=== PATIENT | male | born 1980 | race Caucasian/White ===

== ENCOUNTER 2020-11-04 07:16 | Outpatient (REF) | payer OTHER, SELFPAY ==
[2020-11-04 11:32] LABS: Appearance Urine TURBID; Color Urine YELLOW; Glucose Urine UA NEG (NEG); Leukocyte Esterase Urine NEG (NEG); Nitrite Urine NEG (NEG); PH 5.5 (5.0-8.0); Specific Gravity - Urine >= 1.030 (1.005-1.025); Urine Blood NEG (NEG); Urine Ketones NEG (NEG); Urine Protein NEG (NEG-TRACE)
[2020-11-04 11:38] LABS: Hematocrit 45.3 % (42-52); Hemoglobin 15.6 g/dl (14.0-18.0); Mean Corpuscular HGB Conc 34.4 g/dl (31.0-36.0); Mean Corpuscular Hemoglobin 30.2 pg (27.0-33.0); Mean Corpuscular Volume 87.8 fL (80-98); Mean Platelet Volume 12.1 fL (9.4-12.4); Platelet Count 222 X10*3/uL (160-400); Red Blood Count 5.16 X10*6/uL (4.60-5.80); Red Cell Distribution Width 11.9 % (11.0-16.0); White Blood Count 7.6 X10*3/uL (4.8-10.8)
[2020-11-04 11:47] LABS: Amorphous Sediment Urine 4+ /LPF; RBC Urine 0 /HPF (0); WBC Urine 0 /HPF (0-4)
[2020-11-04 11:50] LABS: Alanine Aminotransferase 38 U/L (0-40); Albumin Level 4.5 g/dL (3.5-5.0); Alkaline Phosphatase 74 U/L (39-117); Anion Gap 14 (12-20); Aspartate Amino Transferase 23 U/L (5-37); Bilirubin Total 1.1 mg/dL (0.0-1.0); Blood Urea Nitrogen 17 mg/dL (9-16); Calcium 9.3 mg/dL (8.4-10.2); Carbon Dioxide 23 mmol/L (22-29); Chloride 106 mmol/L (96-108); Cholesterol 180 mg/dL; Estimated Glomerular Filt Rate > 60; Glucose Fasting 119 mg/dL (60-99); HDL Cholesterol 53 mg/dL; LDL Cholesterol Calculated 82 mg/dl; Sodium 139 mmol/L (135-145); Total Protein 7.3 g/dL (6.5-8.0); Triglycerides 225 mg/dL
== END 2020-11-04 07:17 | disposition home or self-care (01) ==
LOC: HO.HMGCLDS 07:16
PROVIDERS: PCP Internal Medicine; Visit Provider Internal Medicine
DX: Z00.00 Encounter for general adult medical examination without abnormal findings (principal)
CPT/HCPCS: 36415; 80053; 80061; 81001; 85027

== ENCOUNTER 2021-11-05 10:01 | Outpatient (REF) | payer OTHER, SELFPAY ==
--- NOTE | ~2021-11-05 | US_ITS ---
EXAMINATION: US SCROTUM CLINICAL INFORMATION: Epididymitis. COMPARISON: None TECHNIQUE: A sonogram of the scrotum was performed assessing bernabe-scale appearance and color Doppler flow. Spectral Doppler analysis of the arterial and venous flow were performed in the testes bilaterally. FINDINGS: RIGHT: Right testicle measures 5.22 x 2.29 x 3.34 cm, volume 20.9 mL. No focal testicular parenchymal lesions are visualized. Spectral Doppler analysis of the arterial and venous flow is normal in the right testis. Right epididymal head is normal in size. No right hydrocele or varicocele is seen. Right epididymal Doppler flow is normal. LEFT: Left testicle measures 5.10 x 2.33 x 3.03 cm, volume 18.9 mL. No focal testicular parenchymal lesions are visualized. Spectral Doppler analysis of the arterial and venous flow is normal in the left testis. Left epididymal head is normal in size. Trace left hydrocele. No varicocele is seen. Left epididymal Doppler flow is normal. US/US scrotum IMPRESSION: No findings to suggest epididymitis. Trace left hydrocele.
== END 2021-11-05 10:02 | disposition home or self-care (01) ==
LOC: HO.HMGCX 10:01
PROVIDERS: PCP Internal Medicine; Visit Provider Internal Medicine
DX: N45.1 Epididymitis (principal)
CPT/HCPCS: 76870

== ENCOUNTER 2022-03-04 10:57 | Outpatient (REF) | payer OTHER, SELFPAY ==
[2022-03-04 14:03] LABS: MANUAL DIFF FLAG NO
[2022-03-04 14:18] LABS: Basophils Absolute Auto 0.1 X10*3/uL (0.0-0.2); Basophils Percent Auto 0.8 % (0-2); Eosinophils Absolute Auto 0.2 X10*3/uL (0.0-0.4); Hematocrit 47.6 % (42.0-52.0); Hemoglobin 16.2 g/dl (14.0-18.0); Imm Gran Abs Auto 0.06 X10*3/uL (0.00-0.03); Imm Gran Pct Auto 0.8 % (0.0-0.4); Lymphocytes Absolute Auto 2.2 X10*3/uL (1.2-4.9); Mean Corpuscular Hemoglobin 30.1 pg (27.0-33.0); Mean Corpuscular Volume 88.5 fL (80.0-98.0); Mean Platelet Volume 11.4 fL (9.4-12.4); Monocytes Absolute Auto 0.8 X10*3/uL (0.1-1.2); Monocytes Percent Auto 10.6 % (2-11); Neutrophils Percent Auto 54.8 % (45-73); Platelet Count 237 X10*3/uL (160-400); Red Blood Count 5.38 X10*6/uL (4.60-5.80); Red Cell Distribution Width 11.7 % (11.0-16.0); White Blood Count 7.3 X10*3/uL (4.8-10.8)
[2022-03-04 14:27] LABS: Appearance Urine Clear; Color Urine Yellow; Glucose Urine UA Negative (Negative); Leukocyte Esterase Urine Negative (Negative); Nitrite Urine Negative (Negative); PH 6.5 (5.0-9.0); Specific Gravity - Urine 1.015 (1.005-1.025); Urine Blood Negative (Negative); Urine Ketones Negative (Negative); Urine Protein Negative (Neg-Trace)
[2022-03-04 14:28] LABS: Estimated Average Glucose 111 mg/dL; Hemoglobin A1C 150.8504 umol/L; Hemoglobin A1c % 5.5 %
[2022-03-04 14:30] LABS: Bacteria Urine None Seen (None Seen); Hyaline Casts Urine 0-2 /LPF (0-2); RBC Urine 0-2 /HPF (0-2); Squamous Epithelial Cell Urine 0-2 /HPF (0-2); WBC Urine 0-5 /HPF (0-5)
[2022-03-04 14:34] LABS: Alanine Aminotransferase 45 U/L (0-40); Albumin Level 4.5 g/dL (3.5-5.0); Alkaline Phosphatase 77 U/L (39-117); Anion Gap 12 (12-20); Aspartate Amino Transferase 24 U/L (5-37); Bilirubin Total 0.6 mg/dL (0.0-1.0); Blood Urea Nitrogen 16 mg/dL (9-16); Calcium 9.3 mg/dL (8.4-10.2); Carbon Dioxide 26 mmol/L (22-29); Chloride 105 mmol/L (96-108); Cholesterol 182 mg/dL; Estimated Glomerular Filt Rate > 60; Glucose Fasting 113 mg/dL (60-99); HDL Cholesterol 48 mg/dL; LDL Cholesterol Calculated 101 mg/dl; Potassium 4.8 mmol/L (3.3-5.1); Sodium 138 mmol/L (135-145); Total Protein 7.3 g/dL (6.5-8.0); Triglycerides 168 mg/dL
== END 2022-03-04 10:58 | disposition home or self-care (01) ==
LOC: HO.HMGCLDS 10:57
PROVIDERS: PCP Internal Medicine; Visit Provider Internal Medicine
DX: Z00.00 Encounter for general adult medical examination without abnormal findings (principal); I10 Essential (primary) hypertension
CPT/HCPCS: 36415; 80053; 80061; 81001; 83036; 85025

== ENCOUNTER 2023-01-20 13:44 | Outpatient (AMB) | payer OTHER, SELFPAY ==
[2023-01-20 13:53] VITALS: BP 132/78; PULSE 88; O2SAT 97; BMI 32.6
--- NOTE | 2023-01-20 13:53 | MHC.PC.OV ---
Vital Signs 01/20/23 13:53 01/20/23 13:57 Height 6 ft 2 in Weight 254 lb BMI 32.6 BP 132/78 132/80 Blood Pressure Location Lt brachial Rt brachial Position Sitting Sitting Pulse 88 Pulse Source Pulse Oximeter Pulse Oximetry (%) 97 Oxygen Delivery Method Room Air Intake Visit Reasons: elevated BP Intake Note: Pt is here today for a sick visit. Pt c/o elevated BP for last 4 days. Allergies No Known Allergies Allergy (Verified 01/20/23 13:58) Medication List - Last Reconciled 01/20/23 by Tita Jacobsen MD cetirizine (Zyrtec) PO DAILY PRN lisinopril 10 mg PO BID montelukast 10 mg PO DAILY valacyclovir (Valtrex) 2,000 mg (2 x 1 gram) PO Q12H Tobacco use date assessed: 01/20/23 Dental Screening Dental Screen Date: 01/20/23 Did you have a dental visit in the last 12 months?: Yes Did you have a dental problem in the last 6 months where you did not have access to dental care?: No Was dental information given to patient?: Patient has dentist HPI elevated BP HPI Details Pt had an episode of elevated BP 4 days ago to 150/100 and PRESTON. Pt started taking Zyrtec D for seasonal allergies and stopped 3 days ago. Pt has gained 10 lbs, eating processed salty foods. PFSH Medical History Hyperglycemia Overweight HTN (hypertension) Annual physical exam Social History Housing: House Patient Tobacco Use Status: Former Tobacco user (7 years ago ) Tobacco use type: Cigarette Years Smoked: 10-15 years Current occupational status: employed Cognitive needs: No Hearing needs: No Vision needs: No Questionnaire Thrive Questionnaire Date Thrive assessed: 03/04/22 JOSE RAMON-7 AMB Questionnaire JOSE RAMON-7 Date JOSE RAMON - 7 assessed: 03/04/22 Source: Developed by Drs. Adolph Haas, Nickie Horta, Rupert Davalos and colleagues, with an educational elsy from [email or web address] Review of Systems Const All systems reviewed & are unremarkable except as noted in HPI and below Reports no additional complaints Eyes Reports no additional complaints ENT Reports no additional complaints Card Reports no additional complaints Resp Reports no additional complaints GI Reports no additional complaints Reports no additional complaints Physical exam (Primary Care) Vital Signs: Last Vital Signs Pulse 88 01/20/23 13:53 BP 132/80 01/20/23 13:57 Pulse Ox 97 01/20/23 13:53 Oxygen Delivery Method Room Air 01/20/23 13:53 BMI result Body Mass Index 32.6 Tobacco/Smoking Status: Tobacco use Status Tobacco use date assessed 01/20/23 01/20/23 13:59 Patient Tobacco Use Status Former Tobacco user (7 years 01/20/23 13:58 ago ) Tobacco use type Cigarette 01/20/23 13:58 Thrive Assessment: Date of Thrive Assessment Date Thrive assessed 03/04/22 01/20/23 13:58 Const General: no acute distress HENMT Head: Yes normal to inspection Ears: hearing grossly normal bilaterally Face and sinus: Yes normal facial exam Mouth: Normal oral and palatal mucosa present Eyes General: appearance normal, both eyes and all related structures Neck Neck: Yes supple Resp Effort & Inspection: normal respiratory effort Auscultation: clear to auscultation bilaterally Cardio Rhythm: regular rhythm Heart sounds: S1 normal heart sound present and S2 normal heart sound present Assessment and Plan Assessment & Plan (1) Seasonal allergic rhinitis: Code(s): J30.2 - Other seasonal allergic rhinitis Plan: Add Singulair to Zyrtec and refer to patient resource coordinator (2) HTN (hypertension): Code(s): I10 - Essential (primary) hypertension Plan: low Na diet, regular exercise, weight loss discussed, increase Lisinopril to 20 mg, f/u 1 month with fasting labs (3) Annual physical exam: Code(s): Z00.00 - Encounter for general adult medical examination without abnormal findings (4) Hyperglycemia: Code(s): R73.9 - Hyperglycemia, unspecified Orders: Orders Complete Blood Count Auto Diff 1 Month I10 - Essential (primary) hypertension, R73.9 - Hyperglycemia, unspecified, Z00.00 - Encounter for general adult medical examination without abnormal findings Lipid Panel 1 Month I10 - Essential (primary) hypertension, R73.9 - Hyperglycemia, unspecified, Z00.00 - Encounter for general adult medical examination without abnormal findings Microalbumin, Random (w Creat) 1 Month I10 - Essential (primary) hypertension, R73.9 - Hyperglycemia, unspecified, Z00.00 - Encounter for general adult medical examination without abnormal findings Comprehensive [place]. Panel Fast 1 Month I10 - Essential (primary) hypertension, R73.9 - Hyperglycemia, unspecified, Z00.00 - Encounter for general adult medical examination without abnormal findings Hemoglobin A1c 1 Month I10 - Essential (primary) hypertension, R73.9 - Hyperglycemia, unspecified, Z00.00 - Encounter for general adult medical examination without abnormal findings Referrals Allergy & Immunology Referral J30.2 - Other seasonal allergic rhinitis Medications: New montelukast 10 mg PO DAILY 90 tabs 0RF Changed From lisinopril 10 mg PO DAILY 90 tabs 3RF To lisinopril 10 mg PO BID 180 tabs 3RF Coding Level of Care Code Est Pt Level 4 (73632) Diagnoses Seasonal allergic rhinitis J30.2 HTN (hypertension) I10 Annual physical exam Z00.00 Hyperglycemia R73.9
[2023-01-20 13:57] VITALS: BP 132/80
== END 2023-01-20 15:37 | disposition home or self-care (01) ==
PROVIDERS: PCP Internal Medicine; Visit Provider Internal Medicine
DX: J30.2 Other seasonal allergic rhinitis (principal); I10 Essential (primary) hypertension; Z00.00 Encounter for general adult medical examination without abnormal findings; R73.9 Hyperglycemia, unspecified
CPT/HCPCS: 99214

== ENCOUNTER 2023-03-03 06:38 | Outpatient (REF) | payer OTHER, SELFPAY ==
[2023-03-03 11:36] LABS: MANUAL DIFF FLAG NO
[2023-03-03 11:52] LABS: Basophils Absolute Auto 0.1 X10*3/uL (0.0-0.2); Basophils Percent Auto 0.8 % (0-2); Eosinophils Absolute Auto 0.2 X10*3/uL (0.0-0.4); Eosinophils Percent Auto 3.3 % (0-4); Hematocrit 45.8 % (42.0-52.0); Hemoglobin 15.7 g/dl (14.0-18.0); Imm Gran Abs Auto 0.04 X10*3/uL (0.00-0.03); Imm Gran Pct Auto 0.6 % (0.0-0.4); Lymphocytes Absolute Auto 1.9 X10*3/uL (1.2-4.9); Lymphocytes Percent Auto 28.7 % (20-40); Mean Corpuscular HGB Conc 34.3 g/dl (31.0-36.0); Mean Corpuscular Hemoglobin 30.4 pg (27.0-33.0); Mean Corpuscular Volume 88.8 fL (80.0-98.0); Mean Platelet Volume 11.7 fL (9.4-12.4); Monocytes Absolute Auto 0.8 X10*3/uL (0.1-1.2); Monocytes Percent Auto 11.5 % (2-11); Neutrophils Absolute Auto 3.7 x10*3/uL (2.0-8.3); Neutrophils Percent Auto 55.1 % (45-73); Platelet Count 221 X10*3/uL (160-400); Red Blood Count 5.16 X10*6/uL (4.60-5.80); Red Cell Distribution Width 11.8 % (11.0-16.0); White Blood Count 6.6 X10*3/uL (4.8-10.8)
[2023-03-03 12:06] LABS: Estimated Average Glucose 114 mg/dL; Hemoglobin A1C 150.2719 umol/L; Hemoglobin A1c % 5.6 % (<6.0)
[2023-03-03 12:18] LABS: Alanine Aminotransferase 50 U/L (0-40); Albumin Level 4.2 g/dL (3.5-5.0); Alkaline Phosphatase 79 U/L (39-117); Anion Gap 12 (12-20); Aspartate Amino Transferase 27 U/L (5-37); Bilirubin Total 0.6 mg/dL (0.0-1.0); Blood Urea Nitrogen 18 mg/dL (9-16); Carbon Dioxide 23 mmol/L (22-29); Chloride 108 mmol/L (96-108); Cholesterol 190 mg/dL (<200); Estimated Glomerular Filt Rate > 60; Glucose Fasting 132 mg/dL (60-99); HDL Cholesterol 53 mg/dL (>40); LDL Cholesterol Calculated 93 mg/dL (<100); Potassium 4.2 mmol/L (3.3-5.1); Sodium 139 mmol/L (135-145); Total Protein 7.2 g/dL (6.5-8.0); Triglycerides 223 mg/dL (<150)
[2023-03-03 12:53] LABS: Creatinine Urine 289.05 mg/dL; Microalbum/Creatinine Ratio Ur 5.1 ug/mg cr (<30)
== END 2023-03-03 06:39 | disposition home or self-care (01) ==
LOC: HO.HMGCLDS 06:38
PROVIDERS: PCP Internal Medicine; Visit Provider Internal Medicine
DX: Z00.00 Encounter for general adult medical examination without abnormal findings (principal); I10 Essential (primary) hypertension; R73.9 Hyperglycemia, unspecified
CPT/HCPCS: 36415; 80053; 80061; 82043; 82570; 83036; 85025

== ENCOUNTER 2023-03-07 09:58 | Outpatient (AMB) | payer OTHER, SELFPAY ==
[2023-03-07 10:27] VITALS: BP 112/74; PULSE 69; O2SAT 97; BMI 32.5
--- NOTE | 2023-03-07 10:27 | MHC.PC.OV ---
Vital Signs 03/07/23 10:27 Height 6 ft 2 in Weight 253 lb BMI 32.5 BP 112/74 Blood Pressure Location Rt brachial Position Sitting Pulse 69 Pulse Source Pulse Oximeter Pulse Oximetry (%) 97 Oxygen Delivery Method Room Air Intake Visit Reasons: PE Intake Note: Pt is here today for PE. Allergies No Known Allergies Allergy (Verified 03/07/23 10:29) Medication List - Last Reconciled 03/07/23 by Tita Jacobsen MD cetirizine (Zyrtec) PO DAILY PRN lisinopril 10 mg PO BID valacyclovir (Valtrex) 2,000 mg (2 x 1 gram) PO Q12H Tobacco use date assessed: 03/07/23 Dental Screening Dental Screen Date: 03/07/23 Did you have a dental visit in the last 12 months?: Yes Did you have a dental problem in the last 6 months where you did not have access to dental care?: No Was dental information given to patient?: Patient has dentist HPI PE HPI Details Patient presents for physical PFSH Medical History Hyperglycemia Overweight HTN (hypertension) Annual physical exam Social History Housing: House Patient Tobacco Use Status: Former Tobacco user (7 years ago ) Tobacco use type: Cigarette Years Smoked: 10-15 years Current occupational status: employed Cognitive needs: No Hearing needs: No Vision needs: No Questionnaire PHQ-9 Over the last 2 weeks, how often have you been bothered by any of the following problems? 1. Little interest or pleasure in doing things: not at all 2. Feeling down, depressed, or hopeless: not at all 3. Trouble falling or staying asleep, or sleeping too much: not at all 4. Feeling tired or having little energy: several days 5. Poor appetite or overeating: not at all 6. Feeling bad about yourself - or that you are a failure or have let yourself or your family down: not at all 7. Trouble concentrating on things, such as reading the newspaper or watching television: not at all 8. Moving or speaking so slowly that other people could have noticed. Or the opposite - being so fidgety or restless that you have been moving around a lot more than usual: not at all 9. Thoughts that you would be better off or of hurting yourself in some way: not at all Total score: 1 Depression Screening Interpretation: Negative Depression Screening Done: Yes Source: Developed by Drs. Adolph Haas, Nickie Horta, Rupert Davalos and colleagues, with an educational elsy from [employer]. Thrive Questionnaire Date Thrive assessed: 03/07/23 I am a: Patient What is your living situation today?: I have a steady place to live Within the past 12 months, did the food you bought not last and you didn't have the money to get more?: Never true Within the past 12 months, did you worry whether your food would run out before you got money to buy more?: Never true Do you have trouble paying for medicines?: No Do you have trouble getting transportation to medical appointments?: No Do you have trouble paying your heating and electricity bill?: No Do you have trouble taking care of your child, family member or friend?: No Do you have trouble with day-to-day activities such as bathing, preparing meals, shopping, managing finances, etc.?: No Are you currently unemployed and looking for a job?: No Are you interested in more education?: No Please select the resources that you would like help with: None AUDIT C Alcohol Use Questionnaire (AUDIT-C) 1. How often do you have a drink containing alcohol?: Monthly or less 2. How many drinks containing alcohol do you have on a typical day when you are drinking?: 1 or 2 3. How often do you have six or more drinks on one occasion?: Never Total Score: 1 JOSE RAMON-7 AMB Questionnaire JOSE RAMON-7 Date JOSE RAMON - 7 assessed: 03/07/23 Feeling nervous, anxious, or on edge: 0 = Not at all Not being able to stop or control worryin = Not at all Worrying too much about different things: 0 = Not at all Trouble relaxin = Not at all Being so restless that it is hard to sit still: 0 = Not at all Becoming easily annoyed or irritable: 0 = Not at all Feeling afraid as if something awful might happen: 0 = Not at all Total JOSE RAMON-7 score (0-4 normal; 5-9 mild; 10-14 moderate; 15-21 severe): 0 Source: Developed by Drs. Adolph Haas, Nickie Horta, Rupert Davalos and colleagues, with an educational elsy from [employer]. Review of Systems Const All systems reviewed & are unremarkable except as noted in HPI and below Reports no additional complaints Eyes Reports no additional complaints ENT Reports no additional complaints Card Reports no additional complaints Resp Reports no additional complaints GI Reports no additional complaints Reports no additional complaints Physical exam (Primary Care) Vital Signs: Last Vital Signs Pulse 69 03/07/23 10:27 BP 112/74 03/07/23 10:27 Pulse Ox 97 03/07/23 10:27 Oxygen Delivery Method Room Air 03/07/23 10:27 BMI result Body Mass Index 32.5 Tobacco/Smoking Status: Tobacco use Status Tobacco use date assessed 03/07/23 03/07/23 10:33 Patient Tobacco Use Status Former Tobacco user (7 years 03/07/23 10:29 ago ) Tobacco use type Cigarette 03/07/23 10:29 PHQ-9: PHQ-9 Score PHQ-9: Total score 1 03/07/23 11:02 Depression Screening Interpretation: Negative Thrive Assessment: Date of Thrive Assessment Date Thrive assessed 03/07/23 03/07/23 10:33 Const General: no acute distress HENMT Head: Yes normal to inspection Ears: hearing grossly normal bilaterally Face and sinus: Yes normal facial exam Mouth: Normal oral and palatal mucosa present Throat: Yes posterior oropharynx normal Eyes General: appearance normal, both eyes and all related structures Neck Neck: Yes supple Resp Effort & Inspection: normal respiratory effort Auscultation: clear to auscultation bilaterally Cardio Rhythm: regular rhythm Heart sounds: S1 normal heart sound present and S2 normal heart sound present GI Inspection: Yes normal to inspection Palpation (GI): Soft to palpation Percussion: Yes normal to percussion Auscultation: normal bowel sounds Assessment and Plan Assessment & Plan (1) Hyperglycemia: Code(s): R73.9 - Hyperglycemia, unspecified Plan: A1c is 5.3 ADA diet increase physical activity weight loss discussed with the patient. Follow-up in 3 months with a fasting labs before (2) HTN (hypertension): Code(s): I10 - Essential (primary) hypertension Plan: Continue lisinopril (3) Elevated LFTs: Code(s): R79.89 - Other specified abnormal findings of blood chemistry Plan: Increase physical activity, decrease carbohydrates and caloric intake, weight loss discussed with the patient. Abdominal ultrasound will be obtained to evaluate for fatty liver. (4) Annual physical exam: Code(s): Z00.00 - Encounter for general adult medical examination without abnormal findings Plan: Well-balanced diet regular exercise weight loss discussed with the patient. 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, continue OTC antihistamine Orders: Orders Hemoglobin A1c 3 Months I10 - Essential (primary) hypertension, R73.9 - Hyperglycemia, unspecified, Z00.00 - Encounter for general adult medical examination without abnormal findings Complete Blood Count Auto Diff 3 Months I10 - Essential (primary) hypertension, R73.9 - Hyperglycemia, unspecified, Z00.00 - Encounter for general adult medical examination without abnormal findings Lipid Panel 3 Months I10 - Essential (primary) hypertension, R73.9 - Hyperglycemia, unspecified, Z00.00 - Encounter for general adult medical examination without abnormal findings US abdomen complete 3 Months I10 - Essential (primary) hypertension, R73.9 - Hyperglycemia, unspecified, R79.89 - Other specified abnormal findings of blood chemistry, Z00.00 - Encounter for general adult medical examination without abnormal findings Comprehensive [place]. Panel Fast 3 Months I10 - Essential (primary) hypertension, R73.9 - Hyperglycemia, unspecified, Z00.00 - Encounter for general adult medical examination without abnormal findings Microalbumin, Random (w Creat) 3 Months I10 - Essential (primary) hypertension, R73.9 - Hyperglycemia, unspecified, Z00.00 - Encounter for general adult medical examination without abnormal findings Medications: Discontinued montelukast Discontinued Reason: Doctor's Order 10 mg PO DAILY 90 tabs 0RF Coding Level of Care Code Est Pt Prev Care 40-64y(42155) Diagnoses Hyperglycemia R73.9 HTN (hypertension) I10 Elevated LFTs R79.89 Annual physical exam Z00.00 Seasonal allergic rhinitis J30.2
== END 2023-03-07 10:57 | disposition home or self-care (01) ==
PROVIDERS: PCP Internal Medicine; Visit Provider Internal Medicine
DX: Z00.00 Encounter for general adult medical examination without abnormal findings (principal); R73.9 Hyperglycemia, unspecified; I10 Essential (primary) hypertension; J30.2 Other seasonal allergic rhinitis
CPT/HCPCS: 99396

== ENCOUNTER 2023-04-21 11:34 | Outpatient (AMB) | payer OTHER, SELFPAY ==
[2023-04-21 11:48] VITALS: BP 124/64; PULSE 65; O2SAT 97; BMI 32.4
--- NOTE | 2023-04-21 11:48 | A.OFFPC_ITS ---
Vital Signs 04/21/23 11:48 Height 6 ft 2 in Weight 252 lb BMI 32.4 BP 124/64 Blood Pressure Location Lt brachial Position Sitting Pulse 65 Pulse Source Pulse Oximeter Pulse Oximetry (%) 97 Oxygen Delivery Method Room Air Intake Visit Reasons: L side pain behind the eye Intake Note: Pt is here today for a sick visit. Pt c/o pain behind the L eye. Allergies No Known Allergies Allergy (Verified 04/21/23 11:51) Medication List - Last Reconciled 04/21/23 by Tita Jacobsen MD cetirizine (Zyrtec) PO DAILY PRN lisinopril 10 mg PO BID valacyclovir (Valtrex) 2,000 mg (2 x 1 gram) PO Q12H Tobacco use date assessed: 03/07/23 HPI L side pain behind the eye HPI Details Pt c/o new onset PRESTON left side frontal and over left eye, pressure like, occasionally waking patient up at night getting more frequent for the last 2 weeks. Patient denies nausea vomiting weakness or numbness in extremities change in balance. He had an normal eye exam 2 weeks ago. Blood pressure has been slightly elevated at home at 130/88 and patient has been taking lisinopril only once a day. [facility] Medical History Hyperglycemia Overweight HTN (hypertension) Annual physical exam Social History Housing: House Patient Tobacco Use Status: Former Tobacco user (7 years ago ) Tobacco use type: Cigarette Years Smoked: 10-15 years Current occupational status: employed Cognitive needs: No Hearing needs: No Vision needs: No Questionnaire Thrive Questionnaire Date Thrive assessed: 03/07/23 JOSE RAMON-7 AMB Questionnaire JOSE RAMON-7 Date JOSE RAMON - 7 assessed: 03/07/23 Source: Developed by Drs. Adolph Haas, Nickie Horta, Rupert Davalos and colleagues, with an educational elsy from [employer]. Review of Systems Const All systems reviewed & are unremarkable except as noted in HPI and below Reports no additional complaints Eyes Reports no additional complaints ENT Reports no additional complaints Card Reports no additional complaints Resp Reports no additional complaints GI Reports no additional complaints Reports no additional complaints Musc Reports no additional complaints Physical exam (Primary Care) Vital Signs: Last Vital Signs Pulse 65 04/21/23 11:48 BP 124/64 04/21/23 11:48 Pulse Ox 97 04/21/23 11:48 Oxygen Delivery Method Room Air 04/21/23 11:48 BMI result Body Mass Index 32.4 Tobacco/Smoking Status: Tobacco use Status Tobacco use date assessed 03/07/23 04/21/23 11:51 Patient Tobacco Use Status Former Tobacco user (7 years 04/21/23 11:51 ago ) Tobacco use type Cigarette 04/21/23 11:51 Thrive Assessment: Date of Thrive Assessment Date Thrive assessed 03/07/23 04/21/23 11:51 Const General: no acute distress HENMT Head: Yes normal to inspection Ears: hearing grossly normal bilaterally and TM's normal bilaterally General nose exam: Normal external nose present Face and sinus: Yes normal facial exam Throat: Yes posterior oropharynx normal Eyes General: appearance normal, both eyes and all related structures Conjunctivae: conjunctivae normal Pupils: Equal, round and reactive pupils present EOM: EOMs intact bilaterally Neck Neck: Yes no lymphadenopathy and Yes supple Resp Effort & Inspection: normal respiratory effort Auscultation: clear to auscultation bilaterally Cardio Rhythm: regular rhythm Heart sounds: S1 normal heart sound present and S2 normal heart sound present Neuro General: CN's II-XI intact bilaterally Cranial nerves: Yes Equal, round and reactive pupils present Gait exam (Neuro): Normal gait present Motor exam (neuro): 5/5 motor strength present throughout Coordination: [id number] test normal Romberg Test: Negative Extrem General: Yes no clubbing, cyanosis or edema Assessment and Plan Assessment & Plan (1) New onset headache: Code(s): R51.9 - Headache, unspecified Plan: For new onset of headache CT of the brain will be obtained (2) HTN (hypertension): Code(s): I10 - Essential (primary) hypertension Plan: Patient was advised to increase lisinopril to 20 mg a day and monitor blood pressure at home, follow-up in 1 month or prn Orders: Orders CT head/brain wo IV con Today R51.9 - Headache, unspecified Coding Level of Care Code Est Pt Level 3 (84003) Diagnoses New onset headache R51.9 HTN (hypertension) I10
== END 2023-04-21 15:10 | disposition home or self-care (01) ==
PROVIDERS: PCP Internal Medicine; Visit Provider Internal Medicine
DX: R51.9 Headache, unspecified (principal); I10 Essential (primary) hypertension
CPT/HCPCS: 99213

== ENCOUNTER 2023-04-22 14:32 | Outpatient (REF) | payer OTHER, SELFPAY | END 2023-04-22 14:33 | disposition home or self-care (01) | LOC: HO.CT 14:32 | PROVIDERS: PCP Internal Medicine; Visit Provider Internal Medicine | DX: Z13.89 Encounter for screening for other disorder (principal) ==

== ENCOUNTER 2023-04-27 13:28 | Outpatient (REF) | payer OTHER, SELFPAY ==
--- NOTE | ~2023-04-27 | CT_ITS ---
EXAMINATION: CT HEAD WITHOUT CONTRAST CLINICAL INFORMATION: Headache COMPARISON: None available. TECHNIQUE: Contiguous axial imaging was performed from the skull base to vertex without intravenous administration of contrast. This CT examination was performed using dose optimization techniques as appropriate, variously including the following: *Automated exposure control *Adjustment of mA and/or kV according to patient size (this includes techniques or standardized protocols for targeted exams where dose is matched to indication/reason for exam; i.e. extremities or head) *Use of iterative reconstruction technique DLP: 858 mGy-cm FINDINGS: Intracranial structures are unremarkable in appearance. Proctor-white matter differentiation is preserved. No evolving infarct, mass lesion, mass effect, midline shift, hemorrhage or extra-axial fluid intraorbital structures are unremarkable. Sinuses and mastoids free of disease. Bony structures are intact. Soft tissues are unremarkable. CT/CT head/brain wo IV con IMPRESSION: No acute intracranial pathology.
== END 2023-04-27 13:29 | disposition home or self-care (01) ==
LOC: HO.CT 13:28
PROVIDERS: PCP Internal Medicine; Visit Provider Internal Medicine
DX: R51.9 Headache, unspecified (principal); I10 Essential (primary) hypertension
CPT/HCPCS: 70450

== ENCOUNTER 2023-05-20 08:13 | Outpatient (REF) | payer OTHER, SELFPAY ==
--- NOTE | ~2023-05-20 | US_ITS ---
EXAMINATION: US ABDOMEN COMPLETE CLINICAL INFORMATION: Elevated liver function tests. COMPARISON: None available. TECHNIQUE: Real-time imaging of the abdominal viscera. Limited visualization due to bowel gas. FINDINGS: PANCREAS: Poorly visualized. ABDOMINAL AORTA: Limited visualization of proximal abdominal aorta. Imaged [id number] abdominal aorta is nonaneurysmal. INFERIOR VENA CAVA: Visualized portions are normal. LIVER: Hepatomegaly, 17.6 cm. Increased hepatic parenchymal heterogeneity and echogenicity could be associated with hepatocellular disease/hepatic steatosis and severely limits visualization. Correlation with liver function tests and clinical exam recommended to determine further management. GALLBLADDER: No gallbladder wall thickening. A 3 mm nonmobile, mural echogenic focus in the gallbladder may represent a small polyp or focal mural calcification. COMMON BILE DUCT: Normal in caliber measuring 0.5 cm in diameter. RIGHT KIDNEY: No hydronephrosis. No renal calculi. Limited visualization. The kidney measures 14.5 cm in maximum dimension. LEFT KIDNEY: Left extrarenal pelvis. Limited visualization. Multiple left renal hyperechoic lesions, largest midpole 0.8 x 1.0 x 0.8 cm, are difficult to characterize due to limited visualization and small size, possibly representing angiomyolipomas. CT scan with intravenous contrast employing renal mass protocol recommended. The kidney measures 14.6 cm in maximum dimension. SPLEEN: Splenomegaly. 2.3 x 1.9 x 1.7 cm echogenic splenic mass. The spleen measures 14.6 cm in maximum dimension. FREE FLUID: None. US/US abdomen complete IMPRESSION: 1. Hepatomegaly, 17.6 cm. Increased hepatic parenchymal heterogeneity and echogenicity could be associated with hepatocellular disease/hepatic steatosis and severely limits visualization. Correlation with liver function tests and clinical exam recommended to determine further management. 2. A 3 mm nonmobile, mural echogenic focus in the gallbladder may represent a small polyp or focal mural calcification. 3. Multiple left renal hyperechoic lesions, largest mid pole 1.0 cm, are difficult to characterize due to limited visualization and small size, possibly representing angiomyolipomas. CT scan with intravenous contrast employing renal mass protocol recommended. 4. Splenomegaly. 2.3 cm echogenic splenic mass. The spleen measures 14.6 cm in maximum dimension. Recommend attention to this area on CT scan.
== END 2023-05-20 08:14 | disposition home or self-care (01) ==
LOC: HO.HMGCX 08:13
PROVIDERS: PCP Internal Medicine; Visit Provider Internal Medicine
DX: I10 Essential (primary) hypertension (principal); R79.89 Other specified abnormal findings of blood chemistry; Z00.00 Encounter for general adult medical examination without abnormal findings
CPT/HCPCS: 76700

== ENCOUNTER 2023-05-25 09:58 | Outpatient (AMB) | payer OTHER, SELFPAY ==
[2023-05-25 09:58] VITALS: BP 126/74; PULSE 77; O2SAT 96; BMI 32.4
--- NOTE | 2023-05-25 09:58 | MHC.PC.OV ---
Vital Signs 05/25/23 09:58 Height 6 ft 2 in Weight 252 lb BMI 32.4 BP 126/74 Blood Pressure Location Lt brachial Position Sitting Pulse 77 Pulse Source Pulse Oximeter Pulse Oximetry (%) 96 Oxygen Delivery Method Room Air Intake Visit Reasons: 3 Month F/U Intake Note: Pt is here today for 3 months follow up visit. Allergies No Known Allergies Allergy (Verified 05/25/23 10:00) Medication List - Last Reconciled 05/25/23 by Tita Jacobsen MD cetirizine (Zyrtec) PO DAILY PRN lisinopril 10 mg PO BID lisinopril 20 mg PO DAILY valacyclovir (Valtrex) 2,000 mg (2 x 1 gram) PO Q12H Tobacco use date assessed: 05/25/23 Dental Screening Dental Screen Date: 05/25/23 Did you have a dental visit in the last 12 months?: Yes Did you have a dental problem in the last 6 months where you did not have access to dental care?: No Was dental information given to patient?: Patient has dentist HPI 3 Month F/U HPI Details Patient presents for the follow-up on hypertension ,controlled on lisinopril. He started keto diet and has been walking regularly trying to lose weight. [facility] Medical History Hyperglycemia Overweight HTN (hypertension) Annual physical exam Surgical History No pertinent past surgical history Social History Housing: House Patient Tobacco Use Status: Former Tobacco user (7 years ago ) Tobacco use type: Cigarette Years Smoked: 10-15 years e-Cigarette/Vaping Use: Never Used service: No Current occupational status: employed Cognitive needs: No Hearing needs: No Vision needs: No Questionnaire Thrive Questionnaire Date Thrive assessed: 03/07/23 I am a: Patient What is your living situation today?: I have a steady place to live Within the past 12 months, did the food you bought not last and you didn't have the money to get more?: Never true Within the past 12 months, did you worry whether your food would run out before you got money to buy more?: Never true THRIVE Score: 0 AUDIT C Alcohol Use Questionnaire (AUDIT-C) 1. How often do you have a drink containing alcohol?: 2-3 times a week 2. How many drinks containing alcohol do you have on a typical day when you are drinking?: 1 or 2 3. How often do you have six or more drinks on one occasion?: Never Total Score: 3 JOSE RAMON-7 AMB Questionnaire JOSE RAMON-7 Date JOSE RAMON - 7 assessed: 03/07/23 Feeling nervous, anxious, or on edge: 0 = Not at all Not being able to stop or control worryin = Not at all Worrying too much about different things: 0 = Not at all Trouble relaxin = Not at all Being so restless that it is hard to sit still: 0 = Not at all Becoming easily annoyed or irritable: 0 = Not at all Feeling afraid as if something awful might happen: 0 = Not at all Total JOSE RAMON-7 score (0-4 normal; 5-9 mild; 10-14 moderate; 15-21 severe): 0 Source: Developed by Drs. Adolph Haas, Nickie Horta, Rupert Davalos and colleagues, with an educational elsy from [employer]. Review of Systems Const All systems reviewed & are unremarkable except as noted in HPI and below Reports no additional complaints Eyes Reports no additional complaints ENT Reports no additional complaints Card Reports no additional complaints Resp Reports no additional complaints GI Reports no additional complaints Reports no additional complaints Physical exam (Primary Care) Vital Signs: Last Vital Signs Pulse 77 05/25/23 09:58 BP 126/74 05/25/23 09:58 Pulse Ox 96 05/25/23 09:58 Oxygen Delivery Method Room Air 05/25/23 09:58 BMI result Body Mass Index 32.4 Tobacco/Smoking Status: Tobacco use Status Tobacco use date assessed 05/25/23 05/25/23 10:02 Patient Tobacco Use Status Former Tobacco user (7 years 05/25/23 10:02 ago ) Tobacco use type Cigarette 05/25/23 10:02 e-Cigarette/Vaping Use Never Used 05/25/23 10:02 Thrive Assessment: Date of Thrive Assessment Date Thrive assessed 03/07/23 05/25/23 10:02 Const General: no acute distress HENMT Head: Yes normal to inspection Mouth: Normal oral and palatal mucosa present Neck Neck: Yes no lymphadenopathy and Yes supple Resp Effort & Inspection: normal respiratory effort Auscultation: clear to auscultation bilaterally Cardio Rhythm: regular rhythm Heart sounds: S1 normal heart sound present and S2 normal heart sound present Assessment and Plan Assessment & Plan (1) Elevated LFTs: Code(s): R79.89 - Other specified abnormal findings of blood chemistry Plan: Liver ultrasound results pending, decrease alcohol and simple carbohydrates intake, increase physical activity weight loss discussed with the patient follow-up in 3 months with a fasting labs before (2) Hyperglycemia: Code(s): R73.9 - Hyperglycemia, unspecified Plan: ADA diet, exercise, weight loss discussed (3) HTN (hypertension): Code(s): I10 - Essential (primary) hypertension Plan: cont Lisinopril Orders: Orders Comprehensive [place]. Panel Fast Today I10 - Essential (primary) hypertension, R73.9 - Hyperglycemia, unspecified, R79.89 - Other specified abnormal findings of blood chemistry Comprehensive [place]. Panel Fast 3 Months R51.9 - Headache, unspecified Lipid Panel 3 Months R51.9 - Headache, unspecified Microalbumin, Random (w Creat) Today R51.9 - Headache, unspecified Lipid Panel Today I10 - Essential (primary) hypertension, R73.9 - Hyperglycemia, unspecified Hemoglobin A1c Today R73.9 - Hyperglycemia, unspecified Hemoglobin A1c 3 Months R51.9 - Headache, unspecified Hepatitis B,C Profile Today R79.89 - Other specified abnormal findings of blood chemistry Medications: New lisinopril 20 mg PO DAILY 90 tabs 0RF Discontinued lisinopril Discontinued Reason: Doctor's Order 10 mg PO BID 180 tabs 3RF Coding Level of Care Code Est Pt Level 4 (96699) Diagnoses Elevated LFTs R79.89 Hyperglycemia R73.9 HTN (hypertension) I10
== END 2023-05-25 10:35 | disposition home or self-care (01) ==
PROVIDERS: PCP Internal Medicine; Visit Provider Internal Medicine
DX: R73.9 Hyperglycemia, unspecified (principal); I10 Essential (primary) hypertension
CPT/HCPCS: 99214

== ENCOUNTER 2023-05-31 13:49 | Outpatient (REF) | payer OTHER, SELFPAY ==
--- NOTE | ~2023-05-31 | CT_ITS ---
EXAMINATION: CT ABDOMEN WITHOUT AND WITH CONTRAST CLINICAL INFORMATION: Splenomegaly. COMPARISON: Ultrasound abdomen from 05/20/2023 TECHNIQUE: Contiguous axial thin section helical images of the abdomen were performed before and after the administration of 85 mL of Omnipaque [address] examination was performed using dose optimization techniques as appropriate, variously including the following: *Automated exposure control *Adjustment of mA and/or kV according to patient size (this includes techniques or standardized protocols for targeted exams where dose is matched to indication/reason for exam; i.e. extremities or head) *Use of iterative reconstruction technique DLP: 746 mGy-cm FINDINGS: LUNG BASES: No pulmonary consolidation or pleural effusion. HEPATOBILIARY: Diffuse hepatic steatosis and hepatomegaly with right hepatic lobe measuring approximately 21.5 cm in craniocaudal dimension. Gallbladder has a normal appearance. No gallbladder wall thickening or pericholecystic fluid. No dilated bile ducts. PANCREAS: No edema, pancreatic ductal dilatation or mass. SPLEEN: 13.9 cm maximum dimension. No evidence of splenic mass. The echogenic area seen on the recent ultrasound apparently represented some of the normal perisplenic fat. ADRENAL GLANDS: Normal. KIDNEYS AND URETERS: Kidneys are normal in size and enhance symmetrically. No nephrolithiasis, hydronephrosis or perinephric edema. There are three small, subcentimeter sized foci of decreased attenuation in the lateral cortex of the left kidney that have fat density and correspond to the hyperechoic foci seen on ultrasound from 05/20/2023. Findings are compatible with small angiomyolipomas. The visualized proximal ureters are normal. BOWEL AND PERITONEUM: The stomach and visualized bowel loops are normal. No mesenteric fat stranding, free fluid or pneumoperitoneum. ABDOMINAL WALL: Unremarkable. VASCULATURE: Abdominal aorta is normal in caliber and its visualized branches are widely patent. Inferior vena cava is normal. LYMPH NODES: No pathologic sized lymph nodes. MUSCULOSKELETAL: No acute abnormality. Chronic, minimal depression of the superior endplate of the T12 vertebral body. Moderate loss of disc height, vacuum disc phenomenon and osteophytosis at L3-L4. Chronic L5 spondylolysis, L5-S1 disc degenerative change and grade 1 [address]hesis at L5-S1. CT/CT abdomen wo/w IV con IMPRESSION: * No acute imaging abnormalities within the abdomen. * Diffuse hepatic steatosis and hepatosplenomegaly. * Small angiomyolipomas of the left kidney.
[2023-05-31] MEDS: iohexoL 350 MG/ML 75 ML INFUS..BTL 85 ML IV (14:49)
== END 2023-05-31 13:50 | disposition home or self-care (01) ==
LOC: HO.CT 13:49
PROVIDERS: PCP Internal Medicine; Visit Provider Internal Medicine
DX: R16.1 Splenomegaly, not elsewhere classified (principal); N28.89 Other specified disorders of kidney and ureter
CPT/HCPCS: 74170; Q9967

== ENCOUNTER 2023-09-02 07:40 | Outpatient (AMB) | payer OTHER, SELFPAY ==
[2023-09-02 07:54] VITALS: BP 126/80; PULSE 73; O2SAT 98; BMI 30.8
--- NOTE | 2023-09-02 07:54 | A.OFFPC_ITS ---
Vital Signs 09/02/23 07:54 Height 6 ft 2 in Weight 240 lb BMI 30.8 BP 126/80 Blood Pressure Location Lt brachial Position Sitting Pulse 73 Pulse Source Pulse Oximeter Pulse Oximetry (%) 98 Oxygen Delivery Method Room Air Intake Visit Reasons: 3 Month F/U Intake Note: Pt is here today for 3 months follow up visit. Pt states that he has been having sore throat for last 3 weeks. Allergies No Known Allergies Allergy (Verified 09/02/23 07:57) Medication List - Last Reconciled 09/02/23 by Tita Jacobsen MD cetirizine (Zyrtec) PO DAILY PRN lisinopril 20 mg PO DAILY valacyclovir (Valtrex) 2,000 mg (2 x 1 gram) PO Q12H Tobacco use date assessed: 05/25/23 Dental Screening Dental Screen Date: 05/25/23 HPI 3 Month F/U HPI Details Patient presents for the follow-up on hypertension. He complains of sore throat for 3 weeks postnasal drip denies fever chills cough. Patient will be starting immunotherapy for multiple allergies. [facility] Medical History Hyperglycemia Overweight HTN (hypertension) Annual physical exam Surgical History No pertinent past surgical history Social History Housing: House Patient Tobacco Use Status: Former Tobacco user (7 years ago ) Tobacco use type: Cigarette Years Smoked: 10-15 years e-Cigarette/Vaping Use: Never Used service: No Current occupational status: employed Cognitive needs: No Hearing needs: No Vision needs: No Questionnaire Thrive Questionnaire Date Thrive assessed: 03/07/23 JOSE RAMON-7 AMB Questionnaire JOSE RAMON-7 Date JOSE RAMON - 7 assessed: 03/07/23 Source: Developed by Drs. Adolph Haas, Nickie Horta, Rupert Davalos and colleagues, with an educational elsy from [employer]. Review of Systems Const All systems reviewed & are unremarkable except as noted in HPI and below Eyes Reports no additional complaints ENT Reports no additional complaints Card Reports no additional complaints Resp Reports no additional complaints GI Reports no additional complaints Reports no additional complaints Physical exam (Primary Care) Vital Signs: Last Vital Signs Pulse 73 09/02/23 07:54 BP 126/80 09/02/23 07:54 Pulse Ox 98 09/02/23 07:54 Oxygen Delivery Method Room Air 09/02/23 07:54 BMI result Body Mass Index 30.8 Tobacco/Smoking Status: Tobacco use Status Tobacco use date assessed 05/25/23 09/02/23 07:54 Patient Tobacco Use Status Former Tobacco user (7 years 09/02/23 07:54 ago ) Tobacco use type Cigarette 09/02/23 07:54 e-Cigarette/Vaping Use Never Used 09/02/23 07:54 Thrive Assessment: Date of Thrive Assessment Date Thrive assessed 03/07/23 09/02/23 07:54 Const General: no acute distress HENMT Face and sinus: Yes normal facial exam Throat: Yes postnasal drainage Eyes General: appearance normal, both eyes and all related structures Neck Neck: Yes supple Resp Effort & Inspection: normal respiratory effort Auscultation: clear to auscultation bilaterally Cardio Rhythm: regular rhythm Heart sounds: S1 normal heart sound present and S2 normal heart sound present GI Inspection: Yes normal to inspection Palpation (GI): Soft to palpation Percussion: Yes normal to percussion Auscultation: normal bowel sounds Results AMB Rapid Strep AMB Rapid Strep Negative Last Edit by POP Yang on 09/02/23 08: 14 Assessment and Plan Assessment & Plan (1) HTN (hypertension): Code(s): I10 - Essential (primary) hypertension Plan: cont Lisinopril (2) Hyperglycemia: Code(s): R73.9 - Hyperglycemia, unspecified Plan: ADA diet increase exercise weight loss discussed with the patient, check labs today follow-up in 4 months (3) Elevated LFTs: Code(s): R79.89 - Other specified abnormal findings of blood chemistry Plan: Patient was advised to avoid alcohol simple carbohydrates saturated fats Orders: Orders AMB Rapid Strep Screen Today J02.9 - Acute pharyngitis, unspecified, Z13.9 - Encounter for screening, unspecified Comprehensive [place]. Panel Fast Today I10 - Essential (primary) hypertension, R73.9 - Hyperglycemia, unspecified, R79.89 - Other specified abnormal findings of blood chemistry Lipid Panel Today I10 - Essential (primary) hypertension, R73.9 - Hyperglycemia, unspecified, R79.89 - Other specified abnormal findings of blood chemistry Microalbumin, Random (w Creat) Today I10 - Essential (primary) hypertension, R73.9 - Hyperglycemia, unspecified, R79.89 - Other specified abnormal findings of blood chemistry Hemoglobin A1c Today I10 - Essential (primary) hypertension, R73.9 - Hyperglycemia, unspecified, R79.89 - Other specified abnormal findings of blood chemistry Complete Blood Count Auto Diff Today I10 - Essential (primary) hypertension, R73.9 - Hyperglycemia, unspecified, R79.89 - Other specified abnormal findings of blood chemistry Medications: Refilled lisinopril 20 mg PO DAILY 90 tabs 3RF Coding Level of Care Code Est Pt Level 4 (52683) Diagnoses HTN (hypertension) I10 Hyperglycemia R73.9 Elevated LFTs R79.89
== END 2023-09-02 08:25 | disposition home or self-care (01) ==
PROVIDERS: PCP Internal Medicine; Visit Provider Internal Medicine
DX: I10 Essential (primary) hypertension (principal); R73.9 Hyperglycemia, unspecified; R79.89 Other specified abnormal findings of blood chemistry; Z13.9 Encounter for screening, unspecified; J02.9 Acute pharyngitis, unspecified
CPT/HCPCS: 87880; 99214

== ENCOUNTER 2023-09-02 08:26 | Outpatient (REF) | payer OTHER, SELFPAY ==
[2023-09-02 10:23] LABS: MANUAL DIFF FLAG NO
[2023-09-02 10:34] LABS: Basophils Absolute Auto 0.1 X10*3/uL (0.0-0.2); Basophils Percent Auto 0.6 % (0-2); Eosinophils Absolute Auto 0.2 X10*3/uL (0.0-0.4); Eosinophils Percent Auto 1.7 % (0-4); Hematocrit 44.4 % (42.0-52.0); Hemoglobin 15.1 g/dl (14.0-18.0); Imm Gran Abs Auto 0.07 X10*3/uL (0.00-0.03); Imm Gran Pct Auto 0.7 % (0.0-0.4); Lymphocytes Absolute Auto 2.7 X10*3/uL (1.2-4.9); Mean Corpuscular Hemoglobin 30.1 pg (27.0-33.0); Mean Corpuscular Volume 88.4 fL (80.0-98.0); Mean Platelet Volume 11.5 fL (9.4-12.4); Monocytes Absolute Auto 0.9 X10*3/uL (0.1-1.2); Neutrophils Absolute Auto 6.1 x10*3/uL (2.0-8.3); Platelet Count 246 X10*3/uL (160-400); Red Blood Count 5.02 X10*6/uL (4.60-5.80); Red Cell Distribution Width 11.9 % (11.0-16.0); White Blood Count 9.9 X10*3/uL (4.8-10.8)
[2023-09-02 10:57] LABS: Estimated Average Glucose 114 mg/dL; Hemoglobin A1c % 5.6 % (<6.0)
[2023-09-02 11:43] LABS: Alanine Aminotransferase 30 U/L (0-40); Albumin Level 4.3 g/dL (3.5-5.0); Alkaline Phosphatase 83 U/L (39-117); Anion Gap 12 (12-20); Aspartate Amino Transferase 17 U/L (5-37); Bilirubin Total 0.4 mg/dL (0.0-1.0); Blood Urea Nitrogen 14 mg/dL (9-16); Calcium 9.6 mg/dL (8.4-10.2); Carbon Dioxide 26 mmol/L (22-29); Chloride 105 mmol/L (96-108); Cholesterol 188 mg/dL (<200); Estimated Glomerular Filt Rate > 60; Glucose Fasting 111 mg/dL (60-99); HDL Cholesterol 49 mg/dL (>40); LDL Cholesterol Calculated 109 mg/dL (<100); Potassium 4.3 mmol/L (3.3-5.1); Sodium 139 mmol/L (135-145); Total Protein 7.3 g/dL (6.5-8.0); Triglycerides 152 mg/dL (<150)
[2023-09-02 11:44] LABS: Creatinine Urine 123.39 mg/dL
== END 2023-09-02 08:27 | disposition home or self-care (01) ==
LOC: HO.HMGCLDS 08:26
PROVIDERS: PCP Internal Medicine; Visit Provider Internal Medicine
DX: R73.9 Hyperglycemia, unspecified (principal); I10 Essential (primary) hypertension
CPT/HCPCS: 36415; 80053; 80061; 82043; 82570; 83036; 85025

== ENCOUNTER 2024-03-26 10:39 | Outpatient (AMB) | payer OTHER, SELFPAY ==
--- OUTSIDE RECORDS SUMMARY | 2024-03-26 11:30 | XMS_ITS | Clinical Summary ---
Author Organization [facility] Address [address] [place] [address] Care Team Providers Care Manager Of Transportation Name Role Phone Luci Richards PA-C Primary Care Provider + Allergies No known active allergies Medications Medication Sig Dispensed Refills Start Date End Date Status oxyCODONE (ROXICODONE) 5 MG immediate release tablet TK 1 T PO Q 6 H PRN FOR PAIN FOR 3 DAYS 0 08/17/2017 Active ibuprofen (ADVIL) 200 MG tablet Take 200 mg by mouth every 6 (six) hours as needed for pain. 0 Active Acetaminophen (TYLENOL) 167 MG/5ML LIQD Take by mouth. 0 Active cetirizine (ZYRTEC) 10 MG tablet Take 10 mg by mouth daily. 0 Active Active Problems Problem Noted Date Diagnosed Date T12 compression fracture 08/22/2017 Family History Medical History Relation Name Comments Hypertension Father Diabetes Mother Hypertension Mother Relation Name Status Comments Father Mother Social History Tobacco Use Types Packs/Day Years Used Date Smoking Tobacco: Former Cigarettes 0.5 1 997 - 2010 Smokeless Tobacco: Never Alcohol Use Standard Drinks/Week Comments Yes 5 (1 standard drink = 0.6 oz pur e alcohol) Sex and Gender Information Value Date Recorded Sex Assigned at Not on file Gender Identity Not on file Sexual Orientation Not on file Last Filed Vital Signs Vital Sign Reading Time Taken Comments Blood Pressure - - Pulse 76 08/07/2018 1:30 PM EDT Temperature - - Respiratory Rate - - Oxygen Saturation 96% 08/07/2018 1:30 PM EDT Inhaled Oxygen Concentration - - Weight 97.1 kg (214 lb) 08/07/2018 1:30 PM EDT Height 188 cm (6' 2 ) 08/07/2018 1:30 PM EDT Body Mass Index 27.48 08/07/2018 1:30 PM EDT Plan of Treatment Health Maintenance Due Date Last Done Comments Hepatitis B Vaccines (1 of 3 - 3-dose series) 1978 Hepatitis C Screening 1978 COVID-19 Vaccine (#1) 01/13/1979 Depression Screening 1990 BMI Counseling 1996 Preventative Health Evaluation 1996 DTap / Tdap / Td (1 - Tdap) 1997 Colon Cancer Screening (Colonoscopy) 07/14/2023 Influenza Vaccine (#1) 2023 Pneumococcal Vaccine Aged Out No long er eligible based on patient's age to complete this topic RSV Ped < 20 months Aged Out No longe r eligible based on patient's age to complete this topic Care Teams Manager Of Transportation Relationship Specialty Start Date End Date Luci Richards PA-C PCP - General Orthopedics 07/24/18
--- OUTSIDE RECORDS SUMMARY | 2024-03-26 11:30 | XMS_ITS | Data Portability ---
Author Organization [place] [facility] [place] Address [address] [place] [address] Assessment Encounter Date Assessment Date Assessment LastModified by Organization Details LastModified Time 03/01/2024 03/01/2024 ??We reviewed his x-rays and discussed his diagnosis of left-sided plantar fasciitis. We discussed nonoperative management including eccentric calf stretching which was demonstrated for the patient today, to be performed at least 5 times a day for 30 seconds at a time, anti-inflammator ies, either oral or topical such as Voltaren gel, rolling on a frozen water bottle, extending the toes to the MTP joints and plantar fascial massage, avoiding walking barefoot, and appropriate cushioning of the heel either and well cushioned sneakers or by adding gel heel cups. As he is already been performing home exercises for approximately 5 months with no improvement he would like to move forward with a cortisone injection today. This was performed sterilely without difficulty. We will plan to reassess in approximately 3 weeks for repeat assessment. Patient was seen and evaluated by Antonina Whitaker PA-C in indirect conjunction with Documenting Provider: Alice Curtis MD He/She agrees with history, physical examination, tests/diagnostic imaging, and treatment plan [email or web address] Not available 03/01/2024 13:22:51 Plan of Treatment Reminders Order Date Submit Date Provider Last Modified By Organization Details Last Modified Time Details Appointments None recorded. Lab None recorded. Referral None recorded. Procedures None recorded. Surgeries None recorded. Imaging XR, foot, 3 or more view 2024 025 [email or web address] [facility], [address], [address], [place], [address], 13:58:01 Medication Orders lidocaine (PF) 10 mg/mL (1 %) injection solution 2024 025 [email or web address] [facility] #[id number], [address], [place], [place], [phone], 13:23:23 triamcinolo ne acetonide 40 mg/mL suspension for injection 2024 025 [email or web address] [facility] #[id number], [address], [place], [place], [phone], 13:23:23 Patient TargetsNo targets recorded. Patient Instructions Encounter Date Encounter Id Patient Instructions Last Modified By Organization Details Last Modified Time 03/01/2024 [id number] Weightbearing x-rays of the left foot were obtained on 03/01/2024, no acute fractures. Accessory navicular. Calcaneal osteophyte. [email or web address] Not available 03/01/2024 13:23:22 Reason for Referral None Reported. Problems Name Problem SNOMED Code Status Onset Date Resolution Date Notes Provider Name and Address Organization Details Recorded Time Plantar fasciitis of left foot [id number] [address] Active [address], [place], [address], [place] [facility] 13:22:55 Problem Notes None recorded. Procedures Surgical History Date Name Laterality Status Provider Name and Address Organization Details Recorded Time 03/01/2024 [facility] Foot Inj completed [address], [place], [address], [place] [facility] 03/01/2024 13:22:45 Imaging Results None recorded. Procedure Notes None recorded. Medical Equipment None Reported. Medications Name Sig Start Date Stop Date Status Note LastModified by Organization Details LastModified Time amoxicillin 500 mg capsule TAKE 2 CAPSULES TO START THEN 1 CAPSULE BY MOUTH EVERY 8 HOURS UNTIL FINISHED active Not Available Not Available No t Available ibuprofen 800 mg tablet TAKE 1 TABLET EVERY 4-6 HOURS NEEDED FOR PAIN active Not Available Not Available No t Available lisinopril 20 mg tablet TAKE 1 TABLET BY MOUTH DAILY active Not Available Not Available No t Available clindamycin HCl 150 mg capsule TAKE 1 CAPSULE BY MOUTH EVERY 8 HOURS UNTIL FINISHED active Not Available Not Available No t Available triamcinolone acetonide 40 mg/mL suspension for injection Take 40 mg by injection route. 2024 active Not Available Not Available Not Avai lable lisinopril 10 mg tablet TAKE 1 TABLET BY MOUTH TWICE DAILY active Not Available Not Available No t Available lidocaine (PF) 10 mg/mL (1 %) injection solution Take 1 mL by injection route. 2024 active Not Available Not Available Not Avai lable Vitals None Recorded Social History None recorded. Functional Status None recorded. Mental Status None recorded. Family History Nothing Reported. Medical History No medical history recorded. Past Encounters Encounter ID Performer Location Encounter Start Date Encounter Closed Date Diagnosis/Indication Diagnosis SNOMED-CT Code Diagnosis ICD10 Code Diagnosis Note [id number] Alice Curtis MD [address] [address] 03/01/2024 12:33:42 03/01/2024 13:25:15 Pain in left foot [id number] 70349 M79.672 Plantar fa sciitis of left foot [id number] M72.2 Health Concerns Section Related Observation LastModified by Organization Detai ls LastModified Time None Recorded Concern Status LastModified by Organization Details LastModified Time None Recorded Advance Directives Directive None Recorded Payers Encounter Date Sequence Insurance Name Policy Number Policy Jacome Covered Member ID Jacome Member ID Guarantor Name 03/01/2024 1 [employer] (EPO) [id number] Almaz Maggie Juan [id number] Feliberto Juan Notes Date Note Type Note Provider Name and Address Organization Details Recorded Time 03/01/2024 text/html Feliberto Mishra i is a 43-year-old male who presents today for evaluation of his left footPain. This has been present for about 5 months with no known injury. His pain is a 5/10 on average and localized to his heel. He has worsening pain with weightbearing. He does find that he wears issues out on the lateral aspect more quickly. He has been performing home stretches and rolling his foot on a frozen water bottle as well as taking ibuprofen with no significant improvement in symptoms.He has a medical history significant for hypertension. 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 He does not smoke. He socially drinks alcohol. ANTONINA WHITAKER PA-C [address], [place], [address], [place] [facility] 03/01/2024 13:23:41
--- OUTSIDE RECORDS SUMMARY | 2024-03-26 11:30 | XMS_ITS ---
Author Name [facility] [place] Organization Unknown History of Medication Use Medication Directions Dispensed Refills Start Date End Date [facility] clindamycin HCl 150 mg capsule TAKE 1 CAPSULE BY MOUTH EVERY 8 HOURS UNTIL FINISHED active triamcinolone acetonide 40 mg/mL suspension for injection active lidocaine (PF) 10 mg/mL (1 %) injection solution active lidocaine (PF) 10 mg/mL (1 %) injection solution Take 1 mL by injection route. 03/01/2024 active ibuprofen 800 mg tablet TAKE 1 TABLET EVERY 4-6 HOURS NEEDED FOR PAIN active Problems Problem Status Onset Date Problem Type Date of Resoluti on Source Plantar fasciitis of left foot active 2024-03-01 ProblemAct [facility]
--- OUTSIDE RECORDS SUMMARY | 2024-03-26 11:31 | XMS_ITS | Continuity of Care Document ---
Author Organization [place] [facility] Jeannine Fritz [place] Address [address] [address] Assessment Encounter Date Assessment Date Assessment LastModified [...] physical examination, tests/diagnostic imaging, and treatment plan [email or web address] Not available 03/01/2024 13:22:51 Plan of Treatment Reminders Order Date Submit Date Provider Last Modified By Organization Details Last Modified Time Details Appointments None recorded. Lab None recorded. Referral None recorded. Procedures None recorded. Surgeries None recorded. Imaging XR, foot, 3 or more view 2024 025 [email or web address] [facility], [address], [place], [address], 13:58:01 Medication Orders lidocaine (PF) 10 mg/mL (1 %) injection solution 2024 025 [email or web address] [facility][id number], [address] [facility], [place], [place], [phone], 13:23:23 triamcinolo ne acetonide 40 mg/mL suspension for injection 2024 025 [email or web address] [facility] #[id number], [address] [facility], [place], [place], [phone], 13:23:23 Patient TargetsNo targets recorded. Patient Instructions Encounter Date Encounter Id Patient Instructions Last Modified By Organization Details Last Modified Time 03/01/2024 [id number] Weightbearing x-rays of the left foot were obtained on 03/01/2024, no acute fractures. Accessory navicular. Calcaneal osteophyte. Not available 03/01/2024 13:23:22 Reason for Referral None Reported. Problems Name Problem SNOMED Code Status Onset Date Resolution Date Notes Provider Name and Address Organization Details Recorded Time Plantar fasciitis of left foot [id number] 101 Active 2024 ANTONINA WHITAKER PA-C [address], [place], [address], [place] [facility] 13:22:55 Problem Notes None recorded. Procedures Surgical History Date Name Laterality Status Provider Name and Address Organization Details Recorded Time 03/01/2024 AJF Foot Inj completed ANTONINA WHITAKER PA-C [address], [place], [address], [place] [facility] 03/01/2024 13:22:45 Imaging Results None recorded. [...] SNOMED-CT Code Diagnosis ICD10 Code Diagnosis Note [id number] Alice Curtis MD [address] [place] [address] 03/01/2024 12:33:42 03/01/2024 13:25:15 Pain in left foot [id number] 23282 M79.672 Plantar fa sciitis of left foot [id number] M72.2 Health Concerns Section Related Observation LastModified by Organization Detai ls LastModified Time None Recorded Concern Status LastModified by Organization Details LastModified Time None Recorded Payers Encounter Date Sequence Insurance Name Policy Number Policy Jacome Covered Member ID Jacome Member ID Guarantor Name 03/01/2024 1 [employer] (EPO) [id number] Almaz Martinez [id number] Feliberto Martinez Notes Date Note Type Note Provider Name [...] significant for hypertension. 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 He does not smoke. He socially drinks alcohol. ANTONINA WHITAKER PA-C [address], [place], [address], [place] [facility] 03/01/2024 13:23:41
[2024-03-26 11:44] VITALS: BP 104/76; PULSE 79; TEMP 37; O2SAT 97; BMI 32.4
--- NOTE | 2024-03-26 11:44 | A.OFFPC_ITS ---
Vital Signs 03/26/24 11:44 Height 6 ft 2 in Weight 252 lb BMI 32.4 BP 104/76 Blood Pressure Location Lt brachial Position Sitting Pulse 79 Pulse Source Pulse Oximeter Temp 98.6 F Temp Source Oral Pulse Oximetry (%) 97 Oxygen Delivery Method Room Air Intake Visit Reasons: Annual PE Intake Note: Pt is here today for PE. Allergies No Known Allergies Allergy (Verified 03/26/24 11:51) Medication List - Last Reconciled 03/26/24 by Tita Jacobsen MD cetirizine (Zyrtec) PO DAILY PRN lisinopril 20 mg PO DAILY valacyclovir (Valtrex) 2,000 mg (2 x 1 gram) PO Q12H Tobacco use date assessed: 03/26/24 Dental Screening Dental Screen Date: 03/26/24 Did you have a dental visit in the last 12 months?: Yes Did you have a dental problem in the last 6 months where you did not have access to dental care?: No Was dental information given to patient?: Patient has dentist HPI Annual PE HPI Details Patient presents for physical. He had episode of diffuse joint achiness last month. He denies any joint swelling erythema or warmth PFSH Medical History Hyperglycemia Overweight HTN (hypertension) Annual physical exam Surgical History No pertinent past surgical history Social History Housing: House Patient Tobacco Use Status: Former Tobacco user (7 years ago ) Tobacco use type: Cigarette Years Smoked: 10-15 years e-Cigarette/Vaping Use: Never Used service: No Current occupational status: employed Cognitive needs: No Hearing needs: No Vision needs: No Questionnaire PHQ-9 Over the last 2 weeks, how often have you been bothered by any of the following problems? 1. Little interest or pleasure in doing things: not at all 2. Feeling down, depressed, or hopeless: not at all 3. Trouble falling or staying asleep, or sleeping too much: not at all 4. Feeling tired or having little energy: not at all 5. Poor appetite or overeating: not at all 6. Feeling bad about yourself - or that you are a failure or have let yourself or your family down: not at all 7. Trouble concentrating on things, such as reading the newspaper or watching television: not at all 8. Moving or speaking so slowly that other people could have noticed. Or the opposite - being so fidgety or restless that you have been moving around a lot more than usual: not at all 9. Thoughts that you would be better off or of hurting yourself in some way: not at all Total score: 0 Depression Screening Interpretation: Negative Depression Screening Done: Yes 92045 - PHQ-9 Billing: Yes Source: Developed by Drs. Adolph Haas, Nickie Horta, Rupert Davalos and colleagues, with an educational elsy from [email or web address]. Thrive Questionnaire Date Thrive assessed: 03/26/24 I am a: Patient What is your living situation today?: I have a steady place to live Within the past 12 months, did the food you bought not last and you didn't have the money to get more?: Never true Within the past 12 months, did you worry whether your food would run out before you got money to buy more?: Never true Do you have trouble paying for medicines?: No Do you have trouble getting transportation to medical appointments?: No Do you have trouble paying your heating and electricity bill?: No Do you have trouble taking care of your child, family member or friend?: No Do you have trouble with day-to-day activities such as bathing, preparing meals, shopping, managing finances, etc.?: No Are you currently unemployed and looking for a job?: No Are you interested in more education?: No Please select the resources that you would like help with: None Currently or been in a relationship where the following occur: No concerns reported THRIVE Score: 0 AUDIT C Alcohol Use Questionnaire (AUDIT-C) 1. How often do you have a drink containing alcohol?: 2-3 times a week 2. How many drinks containing alcohol do you have on a typical day when you are drinking?: 1 or 2 3. How often do you have six or more drinks on one occasion?: Never Total Score: 3 JOSE RAMON-7 AMB Questionnaire JOSE RAMON-7 Date JOSE RAMON - 7 assessed: 03/26/24 Feeling nervous, anxious, or on edge: 0 = Not at all Not being able to stop or control worryin = Not at all Worrying too much about different things: 0 = Not at all Trouble relaxin = Not at all Being so restless that it is hard to sit still: 0 = Not at all Becoming easily annoyed or irritable: 0 = Not at all Feeling afraid as if something awful might happen: 0 = Not at all Total JOSE RAMON-7 score (0-4 normal; 5-9 mild; 10-14 moderate; 15-21 severe): 0 Source: Developed by Drs. Adolph Haas, Nickie Horta, Rupert Davalos and colleagues, with an educational elsy from [email or web address]. JOSE RAMON-7 Assessment Billing JOSE RAMON-7 Assessment Tool: JOSE RAMON-7 Assessment 84808 Review of Systems Const All systems reviewed & are unremarkable except as noted in HPI and below Eyes Reports no additional complaints ENT Reports no additional complaints Resp Reports no additional complaints GI Reports no additional complaints Reports no additional complaints Musc Reports no additional complaints Physical exam (Primary Care) Vital Signs: Last Vital Signs Temp 98.6 F 03/26/24 11:44 Pulse 79 03/26/24 11:44 BP 104/76 03/26/24 11:44 Pulse Ox 97 03/26/24 11:44 Oxygen Delivery Method Room Air 03/26/24 11:44 BMI result Body Mass Index 32.4 Tobacco/Smoking Status: Tobacco use Status Tobacco use date assessed 03/26/24 03/26/24 11:51 Patient Tobacco Use Status Former Tobacco user (7 years 03/26/24 11:51 ago ) Tobacco use type Cigarette 03/26/24 11:51 e-Cigarette/Vaping Use Never Used 03/26/24 11:51 PHQ-9: PHQ-9 Score PHQ-9: Total score 0 03/26/24 11:52 Depression Screening Interpretation: Negative Thrive Assessment: Date of Thrive Assessment Date Thrive assessed 03/26/24 03/26/24 11:52 Currently or been in a relationship where the following occur: No concerns reported Const General: no acute distress HENMT Face and sinus: Yes normal facial exam Throat: Yes posterior oropharynx normal Eyes General: appearance normal, both eyes and all related structures Neck Neck: Yes no lymphadenopathy and Yes supple Resp Effort & Inspection: normal respiratory effort Auscultation: clear to auscultation bilaterally Cardio Rhythm: regular rhythm Heart sounds: S1 normal heart sound present and S2 normal heart sound present GI Inspection: Yes normal to inspection Palpation (GI): Soft to palpation Percussion: Yes normal to percussion Auscultation: normal bowel sounds Coding Level of Care Code Est Pt Prev Care 40-64y(72390) Diagnoses HTN (hypertension) I10 Annual physical exam Z00.00 Hyperglycemia R73.9 Additional Codes JOSE RAMON-7 Assessment Billing - JOSE RAMON-7 Assessment Tool: JOSE RAMON-7 Assessment 17532 ([id number]) PHQ-9 - 28271 - PHQ-9 Billing: Yes ([id number]) Assessment & Plan Assessment & Plan (1) HTN (hypertension): Code(s): I10 - Essential (primary) hypertension Category: Medical Plan: Continue lisinopril (2) Annual physical exam: Code(s): Z00.00 - Encounter for general adult medical examination without abnormal findings Category: Medical Plan: Well-balanced diet regular physical activity weight loss discussed with the patient. Referred to GI for colonoscopy (3) Hyperglycemia: Code(s): R73.9 - Hyperglycemia, unspecified Category: Medical Plan: Return for fasting labs including A1c Orders: Orders Comprehensive [place]. Panel Fast Today I10 - Essential (primary) hypertension, R73.9 - Hyperglycemia, unspecified, Z00.00 - Encounter for general adult medical examination without abnormal findings Complete Blood Count Auto Diff Today I10 - Essential (primary) hypertension, R73.9 - Hyperglycemia, unspecified, Z00.00 - Encounter for general adult medical examination without abnormal findings Lipid Panel Today I10 - Essential (primary) hypertension, R73.9 - Hyperglycemia, unspecified, Z00.00 - Encounter for general adult medical examination without abnormal findings UA w Microscopic Today I10 - Essential (primary) hypertension, R73.9 - Hyperglycemia, unspecified, Z00.00 - Encounter for general adult medical examination without abnormal findings Lyme IgG/IgM w/reflex to WB Today I10 - Essential (primary) hypertension, R73.9 - Hyperglycemia, unspecified, Z00.00 - Encounter for general adult medical examination without abnormal findings Comprehensive [place]. Panel Fast 1 Year I10 - Essential (primary) hypertension, R73.9 - Hyperglycemia, unspecified, Z00.00 - Encounter for general adult medical examination without abnormal findings Lipid Panel 1 Year I10 - Essential (primary) hypertension, R73.9 - Hyperglycemia, unspecified, Z00.00 - Encounter for general adult medical examination without abnormal findings Hemoglobin A1c 1 Year I10 - Essential (primary) hypertension, R73.9 - Hyper glycemia, unspecified, Z00.00 - Encounter for general adult medical examination without abnormal findings Hemoglobin A1c Today R73.9 - Hyperglycemia, unspecified Complete Blood Count Auto Diff 1 Year I10 - Essential (primary) hypertension, R73.9 - Hyperglycemia, unspecified, Z00.00 - Encounter for general adult medical examination without abnormal findings UA w Microscopic 1 Year I10 - Essential (primary) hypertension, R73.9 - Hyperglycemia, unspecified, Z00.00 - Encounter for general adult medical examination without abnormal findings Referrals Gastroenterology Referral Z00.00 - Encounter for general adult medical examination without abnormal findings Medications: Refilled lisinopril 20 mg PO DAILY 90 tabs 3RF
== END 2024-03-26 12:47 | disposition home or self-care (01) ==
PROVIDERS: PCP Internal Medicine; Visit Provider Internal Medicine
DX: I10 Essential (primary) hypertension (principal); Z00.00 Encounter for general adult medical examination without abnormal findings; R73.9 Hyperglycemia, unspecified

== ENCOUNTER 2024-03-26 10:39 | Outpatient (REF) | payer OTHER, SELFPAY ==
--- OUTSIDE RECORDS SUMMARY | 2024-03-26 14:08 | XMS_ITS | Clinical Summary ---
Author Organization [facility] Address [address] [place] [address] Care Team Providers Care Armature Straightener Name Role Phone Luci Richards PA-C Primary [...] age to complete this topic Care Teams Armature Straightener Relationship Specialty Start Date End Date Luci Richards PA-C PCP - General Orthopedics 07/24/18
[2024-03-26 16:01] LABS: MANUAL DIFF FLAG NO
[2024-03-26 16:08] LABS: Basophils Percent Auto 0.5 % (0-2); Eosinophils Absolute Auto 0.1 X10*3/uL (0.0-0.4); Eosinophils Percent Auto 0.8 % (0-4); Hematocrit 47.8 % (42.0-52.0); Hemoglobin 16.5 g/dl (14.0-18.0); Imm Gran Abs Auto 0.06 X10*3/uL (0.00-0.03); Imm Gran Pct Auto 0.7 % (0.0-0.4); Lymphocytes Percent Auto 22.8 % (20-40); Mean Corpuscular HGB Conc 34.5 g/dl (31.0-36.0); Mean Corpuscular Hemoglobin 30.2 pg (27.0-33.0); Mean Corpuscular Volume 87.5 fL (80.0-98.0); Mean Platelet Volume 11.5 fL (9.4-12.4); Monocytes Absolute Auto 1.1 X10*3/uL (0.1-1.2); Monocytes Percent Auto 12.4 % (2-11); Neutrophils Absolute Auto 5.5 x10*3/uL (2.0-8.3); Neutrophils Percent Auto 62.8 % (45-73); Platelet Count 209 X10*3/uL (160-400); Red Blood Count 5.46 X10*6/uL (4.60-5.80); Red Cell Distribution Width 12.2 % (11.0-16.0); White Blood Count 8.8 X10*3/uL (4.8-10.8)
[2024-03-26 16:24] LABS: Appearance Urine Clear; Color Urine Yellow; Glucose Urine UA Negative (Negative); Leukocyte Esterase Urine Negative (Negative); Nitrite Urine Negative (Negative); Specific Gravity - Urine 1.015 (1.005-1.025); Urine Blood Negative (Negative); Urine Ketones Negative (Negative); Urine Protein Negative (Neg-Trace)
[2024-03-26 16:29] LABS: Bacteria Urine None Seen (None Seen); Hyaline Casts Urine 0-2 /LPF (0-2); RBC Urine 0-2 /HPF (0-2); Squamous Epithelial Cell Urine 0-2 /HPF (0-2); WBC Urine 0-5 /HPF (0-5)
[2024-03-26 16:37] LABS: Alanine Aminotransferase 37 U/L (0-40); Albumin Level 4.7 g/dL (3.5-5.0); Alkaline Phosphatase 74 U/L (39-117); Anion Gap 10 (12-20); Aspartate Amino Transferase 21 U/L (5-37); Bilirubin Total 0.6 mg/dL (0.0-1.0); Blood Urea Nitrogen 14 mg/dL (9-16); Calcium 9.7 mg/dL (8.4-10.2); Carbon Dioxide 26 mmol/L (22-29); Chloride 105 mmol/L (96-108); Cholesterol 222 mg/dL (<200); Estimated Glomerular Filt Rate > 60; Glucose Fasting 91 mg/dL (60-99); HDL Cholesterol 66 mg/dL (>40); LDL Cholesterol Calculated 113 mg/dL (<100); Potassium 4.3 mmol/L (3.3-5.1); Sodium 137 mmol/L (135-145); Total Protein 8.3 g/dL (6.5-8.0); Triglycerides 215 mg/dL (<150)
[2024-03-27 18:03] LABS: Lyme Abs Screen <0.90 index
== END 2024-03-26 10:40 | disposition home or self-care (01) ==
LOC: HO.HMGCLDS 10:39
PROVIDERS: PCP Internal Medicine; Visit Provider Internal Medicine
DX: Z00.00 Encounter for general adult medical examination without abnormal findings (principal); I10 Essential (primary) hypertension; R73.9 Hyperglycemia, unspecified; Z79.899 Other long term (current) drug therapy
CPT/HCPCS: 36415; 80053; 80061; 81001; 85025; 86617; 86618; 96127

== ENCOUNTER 2024-08-15 13:11 | Outpatient (AMB) | payer OTHER, SELFPAY ==
[2024-08-15 13:17] VITALS: BP 124/82; PULSE 77; BMI 33.7
--- NOTE | 2024-08-15 13:17 | MHC.OFFVIS ---
Vital Signs 08/15/24 13:17 Height 6 ft 2 in Weight 262 lb 5.601 oz BMI 33.7 BP 124/82 Blood Pressure Location Lt brachial Position Sitting Pulse 77 Intake Visit Reasons: [place] screening, R/S x1 Intake Note: Feliberto presents in the office as a colonoscopy screening. CC: States that he is just here for a colonoscopy. He states that 10+ years ago he was told he had a benign hemorhoids and has since gotten better. Deputy Juvenile Officer Required: No Allergies No Known Allergies Allergy (Verified 08/15/24 13:19) HPI HPI [facility] screening, R/S x1: Details: Patient is a 44-year-old male with PMH of overweight and hypertension. Referred by PCP for pre colonoscopy screening. This will be Feliberto's first colonoscopy. He confirms regular daily bowel movements typically occurring in the morning after coffee, with no recent episodes of blood in the stool. He recalls a single instance of rectal bleeding due to a benign hemorrhoid diagnosed ten years ago, with no recurrence since. He experiences occasional heartburn, with the last episode occurring two weeks ago, sometimes triggered by the food he consumes. This heartburn occurs infrequently, about once every few months, and is relieved by Tums. He denies any regurgitation, difficulty swallowing, abdominal pain, nausea, or vomiting. Patient denies: fever/chills, appetite changes, unintentional wt loss, ab pain or melena/hematochezia. Social History Diet: Typical intake not specifically detailed, no restrictions noted Alcohol: Consumes socially, a glass of wine at dinner Tobacco: Quit cigarettes 15 years ago; currently smokes one cigar per week Recreational Drugs: Denies use Occupation: Previously worked in [employer] - family hx as below - denies personal hx of CA - denies significant cardiopulmonary history -no prior sedation/anesthesia history. [facility] Medical History (Updated 08/16/24 @ 12:29 by Alisa Delong CNP) Heartburn Colon cancer screening Hyperglycemia Overweight HTN (hypertension) Annual physical exam Surgical History No pertinent past surgical history Social History Housing: House Patient Tobacco Use Status: Former Tobacco user Tobacco use type: Cigarette Years Smoked: 10-15 years e-Cigarette/Vaping Use: Never Used service: No Current occupational status: employed Cognitive needs: No Hearing needs: No Vision needs: No Review of Systems Const Reports as per [facility] ENT Reports as per [facility] Card Reports as per [facility] Resp Reports as per [facility] GI Reports as per [facility] Reports as per [facility] Physical Exam Vital Signs: Last Vital Signs Pulse 77 08/15/24 13:17 BP 124/82 08/15/24 13:17 BMI result Body Mass Index 33.7 Const General: healthy appearing, no acute distress and well developed Nutritional Appearance: well nourished Orientation/consciousness: patient oriented x3 HEENT Head: Yes normal to inspection, Yes normocephalic and Yes atraumatic Face and sinus: Yes normal facial exam Eyes General: appearance normal, both eyes and all related structures Neck Neck: Yes normal visual inspection Resp Effort & Inspection: normal respiratory effort, able to speak in complete sentences, no tracheal deviation and symmetric chest movement Auscultation: clear to auscultation bilaterally Cardio Jugular venous distension: no JVD Rate: regular rate Rhythm: regular rhythm Heart sounds: S1 normal heart sound present, S2 normal heart sound present, no gallops and no murmurs GI Inspection: Yes normal to inspection and No distended Palpation (GI): Soft to palpation, not firm, nontender and No hepatosplenomegaly present Auscultation: normal bowel sounds Neuro General: patient oriented x3 Gait exam (Neuro): Normal gait present Psych Appearance: grossly normal Mental Status: mental status grossly normal Speech and movement: Normal speech and movement present Affect: normal affect Attitude: cooperative Thought process: Normal thought process present Thought content: Normal thought content present Insight: Good insight present (Psych) Judgement: Good judgement present (Psych) Assessment & Plan Assessment & Plan (1) Colon cancer screening: Code(s): Z12.11 - Encounter for screening for malignant neoplasm of colon Category: Medical Plan: Due for index screening colonoscopy. No alarm features Medications: -prescriptions for laxative tablets and MiraLax sent to pharmacy; instructions for Gatorade purchase and clear liquid diet given. Patient educated on scheduling process, procedure preparation, including avoiding certain foods and ensuring clear liquid intake Advised on necessity for ride post-procedure due to sedation. (2) Heartburn: Code(s): R12 - Heartburn Category: Medical Plan: Mild, infrequent and diet induced. He declined additional workup, including upper endoscopy. He will manage with lifestyle modifications. Education on GERD prevention : -Advised against heavy meals; encouraged small, frequent meals instead of large ones. - Instructed to remain upright for 2?3 hours after eating. - Advised to avoid late-night meals, spicy foods, caffeine, alcohol, known dietary triggers, and tight-fitting clothing. - Emphasis placed on gradual implementation of lifestyle changes to improve adherence and symptom control. Plan follow up after colonoscopy as needed. Time: I spent a total of 20 minutes on the date of encounter which includes: Preparing to see the patient (reviewed previous documentation, test results and medical history) Performing a medically appropriate exam and/or evaluation Ordering medications, tests, and procedures Documenting clinical information in the health record Medications: New bisacodyl Take four tablets once for 1 day per colonoscopy instructions 5 mg PO ONCE 4 tabs 0RF 1 day polyethylene glycol 3350 (Miralax) per colonoscopy prep instructions 238 grams PO ONCE 238 grams 0RF Coding Level of Care Code New Pt New Pt Level 2 (25373) Patient Type New Diagnoses Colon cancer screening Z12.11 Heartburn R12
== END 2024-08-15 13:37 | disposition home or self-care (01) ==
LOC: HO.HGI 13:12
PROVIDERS: PCP Internal Medicine; Visit Provider Nurse Practitioner Family
DX: Z01.818 Encounter for other preprocedural examination (principal); Z12.11 Encounter for screening for malignant neoplasm of colon; R12 Heartburn
CPT/HCPCS: S0285